=== PATIENT | male | born 1940 | race Caucasian/White ===

== ENCOUNTER 2018-09-11 06:17 | Emergency (ER) | payer OTHER ==
[2018-09-11] MEDS ORDERED: NS 1,000 ML IV ONE (06:31)
[2018-09-11] MEDS ORDERED: ONDANSETRON 4 MG/2 ML VIAL IVP ONE (07:06)
[2018-09-11] MEDS ORDERED: LOPERAMIDE HCL 2 MG CAP PO ONE (07:07)
--- NOTE | 2018-09-11 07:11 | EDPHY ---
H & P Time Seen by Provider: 09/11/18 06:55 HPI/ROS: CHIEF COMPLAINT: Vomiting and diarrhea HISTORY OF PRESENT ILLNESS: Patient is a 78-year-old male with a history of hypertension who presents emergency department with vomiting and diarrhea. His diarrhea started yesterday. His diarrhea worsened last evening. He had 6 nonbloody episodes. 1 hr ago he started to vomit. He denies any abdominal pain. No dysuria frequency. No fevers or chills. No sick contacts. Patient has had no previous bowel or abdominal surgery. Patient is visiting [place] from [place]. REVIEW OF SYSTEMS: 10 systems were reveiwed and are negative with the exception of the elements mentioned in the history of present illness. Past Medical/Surgical History: Includes hypertension Past surgical history: Includes pacer placement Social history: Patient does not smoke. 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 Smoking Status: Never smoked Physical Exam: Vitals noted GENERAL: Well-appearing, in no acute distress, alert. HEENT: Eyes normal to inspection, normal pharynx, no signs of dehydration. NECK: Normal, supple. RESPIRATORY: Clear to auscultation bilaterally, no rales, rhonchi or wheezing. CVS: Regular rate and rhythm, no rubs, murmurs, or gallops. ABDOMEN: Soft, nontender, nondistended, no organomegaly. Benign BACK: Normal to inspection, no CVA tenderness. SKIN: Normal color, no rash, warm, dry. No pallor. EXTREMITIES: No pedal edema, no calf tenderness, no Homans sign or cords, no joint swelling. NEURO/PSYCH: Alert and oriented, normal mood and affect, normal motor sensory exam. No obvious cranial nerve deficit. Constitutional: Initial Vital Signs Heart Rate 81 09/11/18 06:18 Respiratory Rate 16 09/11/18 06:18 Blood Pressure 175/93 H 09/11/18 06:18 O2 Sat (%) 96 09/11/18 06:18 O2 Delivery Mode Room Air Allergies/Adverse Reactions: No Known Allergies Allergy (Unverified 09/11/18 06:25) Home Medications: Medication Instructions Recorded Inderal Xl 09/11/18 Medical Decision Making ED Course/Re-evaluation: In the emergency department I discussed possible etiologies with the patient and . I answered all his questions. IV was placed. Patient was given 1 L of normal saline for hydration. He is given Zofran 4 mg IV for nausea. Patient was given Imodium 2 tablets orally for diarrhea at his request. Laboratory studies were obtained. Patient has a nonfocal and benign abdominal exam. I did not order imaging this time. Patient white count is mildly elevated at 10. Chemistry panel is unremarkable. I rechecked the patient. He stated he was feeling much better. He has no abdominal pain. His abdomen is soft, nontender nondistended. The patient was able to produce a stool sample. This was sent to the lab. Lab states he will be available 04 10. I discussed this with the patient. I rechecked the patient. He was feeling better. His abdomen was soft, nontender nondistended. Lab was contacted and stated the stool study was negative. Patient was given warnings prior to leaving. He will return with worsening symptoms. He is given warnings prior to leaving. Differential Diagnosis: My differential includes but is not limited to gastroenteritis, small-bowel obstruction, perforation, bacteremia, sepsis, mesenteric ischemia, dissection, aneurysm - Data Points Laboratory Results: Laboratory Results 09/11/18 06:55 09/11/18 06:55 09/11/18 09/11/18 06:55 06:55 WBC 10.17 10^3/uL H 10^3/uL (3.80-9.50) RBC 5.85 10^6/uL 10^6/uL (4.40-6.38) Hgb 18.9 g/dL H g/dL (13.7-17.5) Hct 56.6 % H % (40.0-51.0) MCV 96.8 fL fL (81.5-99.8) MCH 32.3 pg pg (27.9-34.1) MCHC 33.4 g/dL g/dL (32.4-36.7) RDW 12.9 % % (11.5-15.2) Plt Count 255 10^3/uL 10^3/uL (150-400) MPV 10.0 fL fL (8.7-11.7) Neut % (Auto) 65.6 % % (39.3-74.2) Lymph % (Auto) 21.5 % % (15.0-45.0) [place] % (Auto) 9.7 % % (4.5-13.0) Eos % (Auto) 2.8 % % (0.6-7.6) Baso % (Auto) 0.1 % L % (0.3-1.7) Nucleat RBC Rel Count 0.0 % % (0.0-0.2) Absolute Neuts (auto) 6.67 10^3/uL H 10^3/uL (1.70-6.50) Absolute Lymphs (auto) 2.19 10^3/uL 10^3/uL (1.00-3.00) Absolute Monos (auto) 0.99 10^3/uL H 10^3/uL (0.30-0.80) Absolute Eos (auto) 0.28 10^3/uL 10^3/uL (0.03-0.40) Absolute Basos (auto) 0.01 10^3/uL L 10^3/uL (0.02-0.10) Absolute Nucleated RBC 0.00 10^3/uL 10^3/uL (0-0.01) Immature Gran % 0.3 % % (0.0-1.1) Immature Gran # 0.03 10^3/uL 10^3/uL (0.00-0.10) Sodium 137 mEq/L mEq/L (135-145) Potassium 4.5 mEq/L mEq/L (3.5-5.2) Chloride 103 mEq/L mEq/L (97-110) Carbon Dioxide 22 mEq/l mEq/l (22-31) Anion Gap 12 mEq/L mEq/L (6-14) BUN 25 mg/dL H mg/dL (7-23) Creatinine 1.3 mg/dL mg/dL (0.7-1.3) Estimated GFR 53 Glucose 136 mg/dL H mg/dL (70-100) Calcium 9.5 mg/dL mg/dL (8.5-10.4) Total Bilirubin 1.4 mg/dL mg/dL (0.1-1.4) Conjugated Bilirubin 0.3 mg/dL mg/dL (0.0-0.5) Unconjugated Bilirubin 1.1 mg/dL mg/dL (0.0-1.1) AST 30 IU/L IU/L (17-59) ALT 33 IU/L IU/L (21-72) Alkaline Phosphatase 86 IU/L IU/L (38-126) Total Protein 8.0 g/dL g/dL (6.3-8.2) Albumin 4.4 g/dL g/dL (3.5-5.0) Microbiology Results: MICROBIOLOGY 09/11/18 09:00 Stool Gastrointestinal Tract Panel (PCR) - Final No Organism Detected By Pcr Medications Given: Discontinued Medications Sodium Chloride (Ns) 1,000 mls @ 0 mls/hr IV EDNOW ONE; Wide Open PRN Reason: Protocol Stop: 09/11/18 06:32 Last Admin: 09/11/18 06:44 Dose: 1,000 mls Loperamide HCl ( Imodium) 4 mg PO EDNOW ONE Stop: 09/11/18 07:08 Last Admin: 09/11/18 07:11 Dose: 4 mg Ondansetron HCl (Zofran) 4 mg IVP EDNOW ONE Stop: 09/11/18 07:07 Last Admin: 09/11/18 07:11 Dose: 4 mg Departure - Departure Disposition: Home, Routine, Self-Care Clinical Impression: Vomiting and diarrhea Condition: Good Instructions: Acute Nausea and Vomiting (ED), Acute Diarrhea (ED) Additional Instructions: Return with increasing diarrhea, abdominal pain, fever, or any other concerns. Use Imodium as directed by the medication lable. Referrals: ALESHA PETIT [Other] - 3-4 days, if not improved Stand Alone Forms: Airline Excuse
[2018-09-11 07:12] LABS: PLATELET COUNT 255 10^3/uL (150-400)
[2018-09-11 10:23] VITALS: BP 133/86
== END 2018-09-11 10:57 | disposition home or self-care (01) ==
DX: R19.7 Diarrhea, unspecified (principal); R11.10 Vomiting, unspecified; E86.9 Volume depletion, unspecified
CPT/HCPCS: 96361; 96374; 99284; J2405